=== PATIENT | male | born 1980 | race Caucasian/White ===

== ENCOUNTER 2016-07-31 10:42 | Emergency (ER) | payer SELFPAY | END 2016-07-31 12:35 | disposition left against medical advice (07) | LOC: MADERS 10:42 | DX: M79.672 Pain in left foot (principal); F17.210 Nicotine dependence, cigarettes, uncomplicated; V89.2XXA Person injured in unspecified motor-vehicle accident, traffic, initial encounter | CPT/HCPCS: 99283 ==

== ENCOUNTER 2017-12-21 16:31 | Emergency (ER) | payer SELFPAY ==
[2017-12-21] MEDS ORDERED: Ibuprofen 600 MG TAB ONE (18:00)
[2017-12-21] MEDS ORDERED: Sulfameth/Trimethoprim DS 800-160mg TAB ONE (18:00)
[2017-12-21 18:12] LABS: Bilirubin Negative (Negative); Blood, Urine Negative (Negative); Clarity Clear (Clear); Glucose, Urine (Dipstick) Negative (Negative); Leukocyte Negative (Negative); Nitrite Negative (Negative); Protein, Urine (Dipstick) Trace mg/dL (Neg-Trace)
== END 2017-12-21 19:00 ==
LOC: MADERS 16:31
DX: L72.3 Sebaceous cyst (principal); F17.210 Nicotine dependence, cigarettes, uncomplicated
CPT/HCPCS: 81003; 99283

== ENCOUNTER 2018-01-29 11:27 | Outpatient (CLI) | payer OTHER ==
--- NOTE | 2018-01-29 14:02 | CT ---
NONCONTRAST CT THORACIC SPINE: 01/29/2018 HISTORY: Mid back pain. FINDINGS: There is a small pulmonary nodule at the posterior right lung base, measuring 7 mm. The visualized l ungs are otherwise clear. There are mild vascular calcifications seen at the aortic arch. A subcentimeter, xzy-adhsr-[id number]-characterize, hypodense lesion is seen in the dome of the liver. The vertebral body heights of the thoracic spine are within normal limits. No fracture or subluxatio n is seen involving the thoracic spine. No intradural or extradural defect is identified, and the ce ntral spinal canal does appear patent. The neural foramina, throughout the thoracic spine, also appe ar patent. There is slight wedging of the T11 and T12 vertebral bodies, but this is stable compared to the study from 05/20/2012, and may be related to minimal physiological wedging of these vertebral bodies. No acute fracture or subluxation is identified involving the thoracic spine. IMPRESSION: 1. Pulmonary nodule at the posterior left costophrenic angle, measuring 7 mm. Follow-up evaluation in four to six months is recommended. 2. Minimal vascular calcifications in the aortic arch. 3. Subcentimeter, igr-[id number]-dd-characterize, hypodense lesion in the dome of the liver. 4. No acute fracture or subluxation involving the thoracic spine. The central spinal canal and neural foramina appear patent at all levels. POS: TIFFANIE
== END 2018-01-29 11:28 | disposition home or self-care (01) ==
LOC: MADCT 11:27
PROVIDERS: ATTEND Family Medicine
DX: M54.6 Pain in thoracic spine (principal); R91.1 Solitary pulmonary nodule; I70.0 Atherosclerosis of aorta; K76.9 Liver disease, unspecified
CPT/HCPCS: 72128